=== PATIENT | male | born 1950 | race African-American/Black ===

== ENCOUNTER 2020-12-02 08:35 | Emergency (ER) | payer MEDICARE, MEDICAID ==
[~2020-12-02] VITALS: Ht 190.5 cm; Wt 160.0 kg
[2020-12-02] MEDS ORDERED: ACETAMINOPHEN 325MG TABLET PO ONE (09:45)
[2020-12-02] MEDS ORDERED: ACET-2708 MT (10:23)
[2020-12-02 10:41] VITALS: BP 151/84
== END 2020-12-02 10:42 | disposition home or self-care (01) ==
LOC: ER 08:35
DX: S20.219A Contusion of unspecified front wall of thorax, initial encounter (principal); W01.0XXA Fall on same level from slipping, tripping and stumbling without subsequent striking against object, initial encounter; Y93.01 Activity, walking, marching and hiking; Y92.003 Bedroom of unspecified non-institutional (private) residence as the place of occurrence of the external cause; Y99.8 Other external cause status
CPT/HCPCS: 71101; 99283